=== PATIENT | male | born 1985 | race Caucasian/White ===

== ENCOUNTER 2018-03-24 20:01 | Emergency (ER) | payer SELFPAY ==
--- NOTE | 2018-03-24 20:27 | ED.PDOC ---
History of Present Illness - General Chief Complaint: Neuro Symptoms/Deficits Stated Complaint: multiple sezures Time Seen by Provider: 03/24/18 20:23 Source: patient, family Exam Limitations: no limitations - History of Present Illness Initial Comments: HE WAS AT [facility] AND HAD A SEIZURE. WAS BROUGHT BY AMBULANCE. HE BIT HIS LOWER LIP. NO OTHER INJURIES ARE NOTED. THE PATIENT HAD ANOTHER SEIZURE WHILE I WAS AT THE EXAM ROOM, LASTED 10 SECONDS. FAMILY VOICES THAT HE WAS RECENTLY ADMITTED TO [facility] FOR SEIZURE DISORDER. WAS ON KEPPRA AND VALPROIC ACID. FOR SOME REASON KEPPRA WAS DISCONTINUED. HE ALSO STATED THAT HE HAS BEEN CLEAN OF DRUGS FO THE PAST 10 DAYS (MARIHUANA AND METH). Timing/Duration: 1 hour Severity: moderate Improving Factors: nothing Worsening Factors: nothing Associated Symptoms: denies symptoms Allergies/Adverse Reactions: Allergies Morphine Allergy (Verified 03/24/18 20:41) Phenytoin [From Dilantin] Allergy (Verified 03/24/18 20:41) Review of Systems - Review of Systems Constitutional: States: no symptoms reported EENTM: States: mouth pain, other - HAS A DENTAL CAVITY AND IS BEING TREATED WITH ANTIBIOTICS Respiratory: States: no symptoms reported Cardiology: States: no symptoms reported Gastrointestinal/Abdominal: States: no symptoms reported Genitourinary: States: no symptoms reported Musculoskeletal: States: no symptoms reported Skin: States: no symptoms reported Neurological: States: no symptoms reported Endocrine: States: no symptoms reported Hematologic/Lymphatic: States: no symptoms reported Past Medical History (General) - Patient Medical History Hx Seizures: Yes Hx Cardiac Disorders: No Hx Congestive Heart Failure: No 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 Surgical History: no surgical history - Vaccination History Hx Tetanus, Diphtheria Vaccination: Yes - 2018 - Social History Hx Tobacco Use: Yes Hx Alcohol Use: No Hx Substance Use: Yes Family Medical History - Family History Mother Family History: Unknown Hx Family;Other: pt stated he is adopted Physical Exam - Physical Exam General Appearance: Alert, Well Developed, Well Groomed Eye Exam: bilateral normal ENT Exam: other - SMALL BITE TO THE LOWER LIP Neck: non-tender, full range of motion, supple, normal inspection Respiratory: chest non-tender, lungs clear, normal breath sounds, no respiratory distress, no accessory muscle use Cardiovascular/Chest: normal peripheral pulses, regular rate, rhythm, no edema, no gallop, no JVD, no murmur Peripheral Pulses: radial,right: 2+ Gastrointestinal/Abdominal: normal bowel sounds, non tender, soft, no organomegaly, no pulsatile mass Back Exam: normal inspection Extremities Exam: non-tender, normal range of motion Mental Status: alert, 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 Exam: normal hearing, PERRL Progress - Progress Progress: 03/24/18 21:14 Laboratory Tests 03/24/18 03/24/18 20:15 20:15 WBC 11.0 H RBC 4.23 L Hgb 13.8 L Hct 41.4 L MCV 97.8 H MCH 32.6 H MCHC 33.4 RDW 13.5 Plt Count 385 MPV 7.5 Absolute Neuts (auto) 7.00 H Absolute Lymphs (auto) 2.60 Absolute Monos (auto) 0.80 Absolute Eos (auto) 0.50 H Absolute Basos (auto) 0.00 Neutrophils % 63.7 Lymphocytes % 24.1 Monocytes % 7.3 Eosinophils % 4.6 Basophils % 0.3 Sodium 136 Potassium 3.9 Chloride 100 L Carbon Dioxide 27 Anion Gap 12.9 BUN 29 H Creatinine 1.17 BUN/Creatinine Ratio 24.8 H Random Glucose 95 Serum Osmolality 277.6 Calcium 8.9 Total Bilirubin < 0.2 L AST 33 ALT 26 Alkaline Phosphatase 103 Serum Total Protein 6.9 Albumin 4.1 Globulin 2.8 Albumin/Globulin Ratio 1.5 Valproic Acid 29.6 L 03/24/18 21:53 HAD ONE MORE SEIZURE. HIS VALPROIC ACID WAS SUBTHERAPEUTIC. HE WAS GIVEN 500 MG DEPACON. WILL DC AND HE WILL F/U WITH HIS PCP. Departure - Departure Clinical Impression: Seizure disorder Time of Disposition: 21:54 Disposition: Discharge to Home or Self Care Condition: Fair Departure Forms: ED Discharge - Pt. Copy, Patient Portal Self Enrollment Instructions: Seizures, Adult (DC) Diet: resume usual diet Comments: CONTINUE HOME MEDS
[2018-03-24 21:05] VITALS: TEMP 99.1
[2018-03-24] MEDS ORDERED: VALPROATE SODIUM IVPB ONE ×2 (21:10→21:16)
[2018-03-24] MEDS ORDERED: SODIUM CHLORIDE 0.9% IVPB ONE (21:10)
[2018-03-24] MEDS ORDERED: SODIUM CHLORIDE 0.9% 100ML 100 ML IVPB ONE (21:16)
[2018-03-24 22:34] VITALS: BP 128/69; O2SAT 97
== END 2018-03-24 22:35 | disposition home or self-care (01) ==
LOC: ER 20:01
DX: G40.909 Epilepsy, unspecified, not intractable, without status epilepticus (principal); S01.551A Open bite of lip, initial encounter; F15.11 Other stimulant abuse, in remission; F12.11 Cannabis abuse, in remission; Z79.899 Other long term (current) drug therapy; Z87.891 Personal history of nicotine dependence; Z88.5 Allergy status to narcotic agent; Z88.8 Allergy status to other drugs, medicaments and biological substances; X58.XXXA Exposure to other specified factors, initial encounter; Y92.22 Religious institution as the place of occurrence of the external cause
CPT/HCPCS: 36415; 80053; 80164; 80307; 81001; 85025; 93005; J2060; J7050